=== PATIENT | female | born 1955 | race Caucasian/White ===

== ENCOUNTER 2017-05-09 12:29 | Emergency (ER) | payer OTHER ==
[2017-05-09 13:17] VITALS: BP 132/74
[2017-05-09] MEDS ORDERED: Magnesium Citrate Solution 296 ML Bottle PO ONE (14:00)
[2017-05-09] MEDS ORDERED: Ibuprofen 600 MG Tab PO ONE (14:00)
--- NOTE | 2017-05-09 14:09 | EDM.PDOC ---
ED HPI GENERAL MEDICAL PROBLEM - General Chief Complaint: Flank Pain Stated Complaint: BACK ACHE Time Seen by Provider: 05/09/17 13:45 Source of Information: Reports: Patient History Limitations: Reports: No Limitations - History of Present Illness INITIAL COMMENTS - FREE TEXT/NARRATIVE: Miranda is a 61 year old female who presents to the ED today with c/o left flank pain, started yesterday, worse today. Denies any other associative symptoms, does endorse long standing hx of constipation, denies abdominal pain, nausea or vomiting, small BM this morning, last "regular" BM one week ago, taking OTC stool softeners without much relief. 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 ED EXAM, RENAL/ - Physical Exam Exam: See Below Exam Limited By: No Limitations General Appearance: Alert, WD/WN, No Apparent Distress Throat/Mouth: Normal Inspection, Normal Oropharynx Head: Atraumatic Neck: Normal Inspection Respiratory/Chest: No Respiratory Distress, Lungs Clear, Normal Breath Sounds Cardiovascular: Normal Peripheral Pulses, Regular Rate, Rhythm, No Murmur GI/Abdominal: Normal Bowel Sounds, Soft, Non-Tender Rectal (Female) Exam: Deferred Back Exam: Other (No CVA tenderness) Extremities: Normal Inspection, Normal Range of Motion, Non-Tender Neurological: Alert, Oriented, CN II-XII Intact Psychiatric: Normal Affect, Normal Mood Skin Exam: Warm, Dry, Intact Course - Vital Signs Text/Narrative:: Miranda is an otherwise healthy 61 year old female who presents to the ED today with c/o left flank pain. Please refer to HPI and focused exam. Patient on exam is non-tender, she is not in any acute distress, remaining exam unremarkable. She denies any hematuria. Likely muskuloskeletal component, UA obtained to rule out infection and is negative. Urine is negative for blood as well which would be more concerning for ureteral stone. Patient was given ibuprofen here in the ED. Patient was also given mag citrate for c/o constipation. I do not feel that patient's symptoms today are constipation related. Basic blood work was obtained, CBC returns with normal white count. CMP returns unremarkable. I feel patient is stable to be discharge home, she can take Ibuprofen for pain as needed, if symptoms do not improve over the next couple of days she can follow up in clinic. Reasons to return to the ED were discussed, patient agreeable to plan of care and questions were answered prior to discharge. Patient discharged in stable condition. Last Recorded V/S: Last Vital Signs Temp 36.5 C 05/09/17 13:42 Pulse 73 05/09/17 13:42 Resp 16 05/09/17 13:42 BP 132/74 05/09/17 13:42 Pulse Ox 98 05/09/17 13:42 - Orders/Labs/Meds Orders: Active Orders 24 hr Category Date Time Status COMPREHENSIVE METABOLIC PN,CMP [CHEM] Stat Lab 05/09/17 14:59 Completed Labs: Laboratory Tests 05/09/17 05/09/17 Range/Units 14:00 14:59 WBC 5.3 (4.5-11.0) K/uL RBC 4.26 (3.30-5.50) M/uL Hgb 13.3 (12.0-15.0) g/dL Hct 39.3 (36.0-48.0) % MCV 92 (80-98) fL MCH 31 (27-31) pg MCHC 34 (32-36) % Plt Count 234 (150-400) K/uL Neut % (Auto) 70 H (36-66) % Lymph % (Auto) 20 L (24-44) % Chambers % (Auto) 8 H (2-6) % Eos % (Auto) 2 (2-4) % Baso % (Auto) 1 (0-1) % Urine Color Yellow Urine Appearance Clear Urine pH 7.0 (4.5-8.0) Ur Specific [place] 1.010 (1.008-1.030) Urine Protein Negative (NEGATIVE) mg/dL Urine Glucose (UA) Normal (NEGATIVE) mg/dL Urine Ketones Negative (NEGATIVE) mg/dL Urine Occult Blood Negative (NEGATIVE) Urine Nitrite Negative (NEGATIVE) Urine Bilirubin Negative (NEGATIVE) Urine Urobilinogen Normal (NORMAL) mg/dL Ur Leukocyte Esterase Negative (NEGATIVE) Urine RBC 0-5 (0-5) Urine WBC 0-5 (0-5) Ur Epithelial Cells Few Amorphous Sediment Not seen Urine Bacteria Few Urine Mucus Not seen Meds: Medications Discontinued Medications Generic Name Dose Route Start Last Admin Trade Name Mariusz PRN Reason Stop Dose Admin Ibuprofen 600 mg 05/09/17 14:00 05/09/17 14:36 Motrin PO 05/09/17 14:01 600 mg ONETIME ONE Administration Magnesium Citrate 296 ml 05/09/17 14:00 05/09/17 14:36 Citrate Of Magnesia PO 05/09/17 14:01 296 ml ONETIME ONE Administration Departure - Departure Time of Disposition: 16:15 Disposition: Home, Self-Care 01 Condition: Good Clinical Impression: Acute right flank pain - Discharge Information Instructions: Flank Pain, [id number] Referrals: PCP,None [Primary Care Provider] - Forms: ED Department Discharge Additional Instructions: Blood work looks great. I think this may very well be muscle related. Stay well hydrated, You can take ibuprofen and tylenol for pain Follow up with primary care doctor in one week Return to the ED with any worsening symptoms Have a happy 4th! - My Orders Last 24 Hours: My Active Orders 05/09/17 14:59 COMPREHENSIVE METABOLIC PN,CMP [CHEM] Stat - Assessment/Plan Last 24 Hours: My Active Orders 05/09/17 14:59 COMPREHENSIVE METABOLIC PN,CMP [CHEM] Stat
== END 2017-05-09 16:15 | disposition home or self-care (01) ==
LOC: JP.ED 12:29
DX: R10.9 Unspecified abdominal pain (principal); Z98.890 Other specified postprocedural states
CPT/HCPCS: 36415; 80053; 81001; 85025; 99284; A9270